=== PATIENT | male | born 1970 | race Caucasian/White ===

== ENCOUNTER 2017-07-14 16:48 | Inpatient (IN) ==
[2017-07-14] MEDS ORDERED: IOPAMIDOL 100 ML BOTTLE IV ONE (16:49)
--- NOTE | 2017-07-14 17:21 | Emergency Department Note ---
Abdominal Pain HPI - General Chief Complaint: Abdominal Pain Stated Complaint: Abdominal pain Time Seen by Provider: 07/14/17 17:04 Source: patient Mode of arrival: EMS Limitations: no limitations - History of Present Illness HPI Narrative: 46-year-old male presents by EMS from [place]. He was seen for 6 day history of diarrhea/constipation, abdominal pain, and nausea/vomiting. He had labs which were unremarkable besides a very elevated amylase and a very elevated lipase. He had back surgery on 17 May and got a postoperative infection and started taking Keflex and Bactrim. He had issues with constipation and stopped taking his pain medication cold turkey. In the last 6 days he has not had any pain medication but has had vomiting daily. He is also had small stools that are not normal. He states it is very hard for him to bear down and pass a stool. No fevers or chills. He was trying to ride it out at home but then decided to go to the hospital. Denies history of drinking. He did take hydrocodone for back pain before his surgery. He had an x-ray done which showed air-fluid levels and suspicious for bowel obstruction. He was given nausea medication and fluids at the hospital and has not vomited since. He does not want any pain medication. He has had issues with constipation in the past but never anything this bad - Related Data Home Medications Medication Instructions Recorded Confirmed Baclofen [Lioresal] 10 mg PO TID 07/14/17 07/14/17 Cephalexin [Keflex] 500 mg PO TID 07/14/17 07/14/17 Gabapentin [Neurontin] 300 mg PO Q8 07/14/17 07/14/17 Sennosides [Senna Laxative] 8.6 mg PO BID 07/14/17 07/14/17 Sulfamethoxazole/Trimethoprim 1 each PO BID 07/14/17 07/14/17 [Sulfamethoxazole-Tmp Ss Tablet] traZODone HCL [Desyrel] 150 mg PO HS 07/14/17 07/14/17 Allergies Allergy/AdvReac Type Severity Reaction Status Date / Time No Known Drug Allergies Allergy Verified 07/14/17 16:52 Review of Systems All systems ED: reviewed and negative except as stated. Abdominal Pain PMH - Past Medical History Medical history: Reports: other (back pain). Denies: hypertension Surgical history ED: Reports: other (back surgery) Psychiatric history: Reports: no psych history Family history: Reports: no significant family history - Social History Smoking status: Former smoker Physical Exam Limitations: no limitations General appearance: alert, in no apparent distress Head: atraumatic Eye: Present: normal appearance. Absent: conjunctival injection Neck: Present: normal inspection, full ROM Chest: Present: normal inspection, symmetric chest wall rise Respiratory: Present: normal lung sounds bilaterally Cardiovascular: Present: regular rate, normal heart sounds Abdominal: Present: soft, tenderness, guarding, hyperactive bowel sounds. Absent: distention, rebound, rigidity Abdominal tenderness: Present: epigastrium, diffuse, moderate Extremities: Present: normal inspection, full ROM Neurological: Present: alert, oriented X3 Psychiatric: Present: normal affect, normal mood Skin: Present: warm, dry, intact Course Course Narrative: He will be admitted and managed Vital Signs Temperature 97.7 F 07/14/17 16:49 Pulse Rate 61 07/14/17 16:49 Respiratory Rate 18 07/14/17 16:49 Blood Pressure 112/65 07/14/17 16:49 Pulse Oximetry (%) 97 07/14/17 16:49 Temperature 97.7 F 07/14/17 16:49 Pulse Rate 64 07/14/17 20:12 Respiratory Rate 18 07/14/17 16:49 Blood Pressure 131/80 07/14/17 20:12 Pulse Oximetry (%) 100 07/14/17 20:12 Disposition Pt seen by [facility]/PA only: Yes Clinical Impression: Pancreatitis Disposition: Xfer As Inpt ([facility]) Condition: Fair Referrals: Mary Hunt DO [Primary Care Provider] -
[2017-07-14] MEDS ORDERED: ACETAMINOPHEN 325 MG TABLET PO PRN (21:40)
[2017-07-14] MEDS ORDERED: traZODone HCL 150 MG TABLET PO SCH (21:40)
[2017-07-14] MEDS ORDERED: PROCHLORPERAZINE 10 MG/2 ML VIAL IV PRN (21:40)
[2017-07-14] MEDS: 0.9 % SODIUM CHLORIDE 1,000 ML IV SCH (22:12)
[2017-07-14] MEDS: GABAPENTIN 300 MG CAPSULE PO SCH (22:30)
[2017-07-14] MEDS: SENNOSIDES 1 TABLET PO SCH (22:30)
[2017-07-14] MEDS: SULFAMETHOXAZOLE/TRIMETHOPRIM 1 TABLET PO SCH (22:30)
[2017-07-14] MEDS: ONDANSETRON 4 MG/2 ML VIAL IV PRN (22:31)
[2017-07-14] MEDS: FAMOTIDINE/PF 20 MG/2 ML VIAL IV SCH (22:31)
[2017-07-14] MEDS: 0.9 % SODIUM CHLORIDE 10 ML SYRINGE IV SCH (22:31)
[2017-07-14] MEDS: KETOROLAC 30 MG/ML VIAL IV PRN (22:31)
--- NOTE | 2017-07-14 22:58 | Internal Med History&Physical ---
Medical - H&P: HPI Patient information: Note initiated : 07/14/17 at 10:53 pm Service Date, if different from initiated Date: [] Patient: Kaushik Cochran 46 y/o M admitted on 07/14/17 for Abdominal pain. Chief Complaint: abdominal pain History of present illness: Patient's a 46-year-old male who lives near [place]. His recent history is notable for back surgery with lower lumbar fusion. He been treated for postoperative wound infection. About 10 days ago, he followed up with his surgeon in [place]. He is finishing her first course of oral antibiotics ( Bactrim and Keflex) and was prescribed a second round of antibiotics. Patient states that as he was starting the second round of 10 days of oral antibiotics he started developing abdominal pain, nausea and vomiting. The pain would wake him from sleep and psychological assistant. The pain was associated with nausea. Sometimes he be able to keep down oral intake, other times he would have emesis. He has not had hematemesis. During this time, apparently his use of opioid pain medications decreased. He feels he might be going through withdrawal, and eventually stopped all opioids. His pain is rather diffuse. Associated with nausea and vomiting. Also he has intermittent loose and solid stools. It hurts to bear down to try to pass the stool. He's felt sweaty and chilled during this time. Oral intake may make the abdominal pain worse. Due to ongoing pain, he presents to the hospital [place]. Radiographs there shows air-fluid levels and concern for possible bowel obstruction. He is transferred to this facility for further evaluation. CT in the emergency department did not reveal bowel obstruction, did show evidence of scattered air- fluid levels which are nonspecific. The gallbladder is contracted, the biliary ducts were normal in size. There is not significant inflammatory change around the pancreas. Labs obtained in [place] were notable for an elevated lipase at 1489. Amylase is also elevated at 236. Patient is being admitted for further treatment as of abdominal pain, presumptive acute pancreatitis. Patient denies fevers, he has been feeling chilled and sweaty at times. No headache, no vision changes, and no sore throat, no shortness of breath, no chest pain, no cough or sputum production. No history of lung disease, no history of thyroid disease, no history of pancreatic disease or diabetes. No prior history of GI illnesses. No history of renal disease. No history of cardiac disease, congestive heart failure or stroke. All systems: reviewed and no additional remarkable complaints except as stated Medical - H&P: PMH Medical history: Degenerative joint disease Surgical history: Status post shoulder surgery Status post lumbar fusion Pertinent family history: No history of gastrointestinal illness. Sister with renal issues, his mother has had stenting of the heart. Social history: The patient has not drank in 7 years. He stopped smoking many months ago preoperatively. Medical - H&P: Meds Home Medications Medication Instructions Recorded Confirmed Type Baclofen [Lioresal] 10 mg PO TID 07/14/17 07/14/17 History Cephalexin [Keflex] 500 mg PO TID 07/14/17 07/14/17 History Gabapentin [Neurontin] 300 mg PO Q8 07/14/17 07/14/17 History Sennosides [Senna Laxative] 8.6 mg PO BID 07/14/17 07/14/17 History Sulfamethoxazole/Trimethoprim 1 tab PO BID 07/14/17 07/14/17 History [Bactrim Ds] traZODone HCL [Desyrel] 150 mg PO HS 07/14/17 07/14/17 History Allergies Allergy/AdvReac Type Severity Reaction Status Date / Time No Known Drug Allergies Allergy Verified 07/14/17 16:52 Medical - H&P: Exam - Constitutional Vitals: Temp Pulse Resp BP Pulse Ox 98.3 F 78 18 115/66 97 07/14/17 21:51 07/14/17 21:51 07/14/17 21:51 07/14/17 21:51 07/14/17 21:51 Exam: General: Alert, in no acute distress HEENT: Normocephalic. Pupils are equally round and reactive to light. Sclera are anicteric. No conjunctival injection. Oropharynx is with moist mucous membranes, no lip or gum lesions. Tongue is midline. Neck: Supple, no meningismus. No thyromegaly. Chest: Clear to auscultation bilaterally with no rales or wheezes. No accessory muscle use. Cardiovascular: Regular rate and rhythm without murmur gallop or rub. Carotid pulses are 2+ without bruit. There is no lower extremity edema. JVP is normal. Abdomen: Soft, diffuse moderate tenderness to palpation without guarding or rebound. Very active bowel sounds present. No rushes or tinkles. No hepatosplenomegaly. Lymphatic: No cervical or supraclavicular lymphadenopathy. Skin: Warm, dry. No rash. Skin turgor is normal Musculoskeletal: No joint erythema or tenderness. Normal range of motion in the upper and lower extremities. Strength 5/5 in upper and lower extremities. Digits without cyanosis or clubbing. Surgical incision without surrounding erythema or discharge on the lower back. Neuro: Alert, oriented X3. Cranial nerves II through XII grossly intact. Sensation intact to light touch. DTR 2+ in the upper and lower extremity. Psychiatric: Affect and orientation are normal. Good insight. Medical - H&P: Reslt - Labs Labs: Labs obtained in [place] count 9.8, hemoglobin 14.4, platelet count 263,000 with 73% neutrophils and differential. Sodium 141, potassium 4.3, chloride 100, bicarbonate 29, BUN 12, creatinine 1.08. Calcium 10.8, total protein 8.7, albumin 4.6, total bilirubin 0.46, alkaline phosphatase 87, ALT 20, AST 11. Lipase 1489, amylase 236. - Imaging and Cardiology CT scan - abdomen Status: image reviewed by me Additional comments: scattered air-fluid levels, normal bile ducts, no significant pancreatic lesions. No evidence of small bowel obstruction. Medical - H&P: A/P (1) Pancreatitis Current visit: Yes Status: Acute - Narrative A/P Narrative: 46-year-old male presents with ongoing abdominal pain, nausea and vomiting with evidence of elevated lipase. Nausea and vomiting. Presumptive acute pancreatitis. May not explain all of his abdominal pain. There may also be a component of opioid withdrawal. Unclear if that could've contributed to an elevated lipase, bowel obstructions can, but unclear about bowel hyperactivity in withdrawal. No evidence of bowel obstruction on CT scan. Etiology of the pancreatitis would be unclear, he has been on Bactrim and Keflex, those are not generally associated with pancreatitis however. No other new medications. He has not drink alcohol. His biliary system looks normal on CT scan. No history of hyperlipidemia, but that remains a possibility. Without significant leukocytosis and with him passing formed stool at times, feel C. difficile is less likely. Plan: Inpatient admission Clear liquid diet, IV hydration Anti-emetics Pain control with Toradol, will attempt to avoid opioids, as he does not wish to resume those compounds. Check for hypertriglyceridemia. If stools become more watery and persisting, consider checking C. difficile. Surgical site infection of the lumbar spine. Resonant on admission. Plan: Continue with oral antibiotics. CODE STATUS full code. Prophylaxis: Lovenox.
[2017-07-15] MEDS: traZODone HCL 150 MG TABLET PO PRN ×2 (00:39→22:34)
[2017-07-15] MEDS: GABAPENTIN 300 MG CAPSULE PO SCH ×3 (06:41→22:33)
[2017-07-15] MEDS: 0.9 % SODIUM CHLORIDE 10 ML SYRINGE IV SCH ×3 (06:42→20:59)
[2017-07-15 06:57] LABS: Mean Cell Volume 91.1 fL (80.0-100.0); Mean Corpuscular HGB Conc 33.5 g/dL (31.0-36.0); Mean Corpuscular Hemoglobin 30.6 pg (26.0-34.0); Platelet Count 210 K/mcL (140-440); RBC 3.81 M/mcL (4.50-5.90); Red Cell Distribution Width 15.1 % (11.5-14.5)
[2017-07-15] MEDS: KETOROLAC 30 MG/ML VIAL IV PRN ×3 (07:07→20:58)
[2017-07-15] MEDS: ONDANSETRON 4 MG/2 ML VIAL IV PRN (07:07)
[2017-07-15 07:10] LABS: ALT/SGPT 8 U/l (0-40); Albumin 3.7 gm/dL (3.2-5.2); Albumin/Globulin Ratio 1.6 (1.0-2.3); Alkaline Phosphatase 56 U/L (39-117); Bilirubin,Direct < 0.2 mg/dL (0.0-0.3); Blood Urea Nitrogen 9 mg/dl (6-20); Gamma Glutamyl Transpeptidase 19 U/L (8-61); Uric Acid 3.6 mg/dL (2.5-8.0)
[2017-07-15 07:56] LABS: Lymphocytes % 20 % (15-49); Monocytes % (Manual) 6 % (1-12); Platelet Estimate NORMAL (NORMAL); RBC Morphology NORMAL (NORMAL); Segmented Neutrophils % 74 % (38-78)
[2017-07-15] MEDS: 0.9 % SODIUM CHLORIDE 1,000 ML IV SCH ×2 (08:32→18:07)
--- NOTE | 2017-07-15 08:41 | Cat Scan Report ---
CLINICAL INFORMATION: Reason for Exam:bowel obstruction, pancreatitis COMPARISON: None. TECHNIQUE: Following injection of intravenous contrast the patient was scanned during the portal venous phase from the diaphragm through the symphysis pubis. Sagittal and coronal reformats were created.. FINDINGS: The lung bases are clear. The liver and spleen are normal in size and homogeneous. The gallbladder is incompletely distended but the maza are not thickened or inflamed and there are no gallstones. The bile ducts are nondilated. Along the inferior border of the head of the pancreas there is ill-defined 1 x 1.1 cm low-attenuation lesion. The remainder the pancreas is normal. The pancreatic duct is nondilated and there is no pseudocyst. The adrenals are normal in size and symmetric. There are two nonobstructing calyceal stones in the right kidney which measure up to 1.5 mm in size. There is no stone in the left kidney. No hydronephrosis mass or cyst are present in either kidney. There is moderate amount of fluid in nondilated large and small intestine. There are a few air-fluid levels in the colon. No ascites, abscess or adenopathy are present within the abdomen or pelvis. Urinary bladder is largely decompressed but grossly normal. No abnormalities detected in or adjacent to the prostate or seminal vesicles. There is plaque formation along the wall of a normal caliber distal abdominal aorta and the common iliac arteries. IMPRESSION: 1 cm low-density lesion inferiorly in the head of the pancreas. This is probably focal pancreatitis and less likely neoplasm or complex cyst. Nonobstructing kidney stones in the right side Nonspecific bowel pattern without evidence of bowel obstruction Interpreted and Authenticated by: Yunior Emmanuel 07/15/17
[2017-07-15] MEDS: CEPHALEXIN 250 MG CAPSULE PO SCH ×3 (09:16→20:50)
[2017-07-15] MEDS: SULFAMETHOXAZOLE/TRIMETHOPRIM 1 TABLET PO SCH ×2 (09:16→20:50)
[2017-07-15] MEDS: FAMOTIDINE/PF 20 MG/2 ML VIAL IV SCH ×2 (09:17→20:50)
[2017-07-15] MEDS: SENNOSIDES 1 TABLET PO SCH ×4 (09:17→20:51)
--- NOTE | 2017-07-15 17:29 | Internal Med Progress Note ---
Medical - PN: Subj Patient information: Note initiated : 07/15/17 at 5:26 pm Service Date, if different from initiated Date: [] Patient: Kaushik Cochran 46 y/o M admitted on 07/14/17 for Abdominal pain. Chief Complaint: f/u pancreatitis Interval history: 07/14 46-year-old male presented with abdominal pain, persistent nausea and vomiting. Had elevated lipase. However also had been cutting back and stopping opioid pain medications he had from previous back surgery. 2/3 Improved today, tolerating clear liquid diet in general. He has had no emesis. Still with intermittent abdominal pain, though some of that appears to be musculoskeletal in nature along the rib cage as a result of retching for the last few weeks. In pretty good spirits. Like to try full liquids. Lipase down to the 100 range. Did discuss the results of abdominal CT with radiologist, formal read shows cystic structure in the pancreas that could be consistent with pancreatitis, follow-up will be needed - Constitutional Vitals: Vital Signs Temp Pulse Resp BP Pulse Ox 98.4 F 58 L 18 131/68 97 07/15/17 15:31 07/15/17 04:00 07/15/17 15:31 07/15/17 15:31 07/15/17 15:31 Period Temp Pulse Resp BP Sys/[place]ston Pulse Ox Last 24 Hr 98.1 F-99.7 F 52-78 16-18 99-158/53-141 96-100 Intake and Output 07/15/17 07/15/17 07/15/17 05:59 13:59 21:59 Intake Total 900 / 900 2520 / 2520 320 / 320 Output Total 275 / 275 550 / 550 500 / 500 Balance 625 / 625 1969180 / -180 Weight 129 lb 11.2 oz 129 lb 11.2 oz Patient Weight 07/16/17 05:59 Weight 129 lb 11.2 oz Intake & Output: Intake & Output 07/15/17 07/15/17 07/15/17 05:59 13:59 21:59 Intake Total 900 / 900 2520 / 2520 320 / 320 Output Total 275 / 275 550 / 550 500 / 500 Balance 625 / 625 1969180 / -180 Weight 129 lb 11.2 oz 129 lb 11.2 oz Intake: IV 1000 / 1000 Sodium Chloride 0.9% 1,000 ml @ 1000 / 1000 100 mls/hr IV .Q10H [facility] Rx#: [id number] Oral 900 / 900 1520 / 1520 320 / 320 Output: Void Amount 275 / 275 550 / 550 500 / 500 Other: Meal Dinner Percent of Meal Consumed 100% # Voids 1 # Bowel Movements 1 1 Exam: General: Awake, alert, no distress Chest: Clear, unlabored Cardiovascular: Regular, no edema Abdomen: Soft, mild epigastric tenderness to palpation, no guarding or rebound. There is tenderness along the costal margin as well. Neuro: Alert, oriented, nonfocal Skin: Surgical wound on back without erythema or discharge. Medical - PN: Obj Da - Labs CBC & Chem 7: 07/15/17 05:10 07/15/17 05:10 Labs: Abnormal Lab Results 07/15/17 07/15/17 05:10 05:10 RBC 3.81 L Hgb 11.6 L Hct 34.7 L RDW 15.1 H Lipase 160 H Meds: Medications Acetaminophen (Tylenol) 650 mg PO Q6HP PRN PRN Reason: PAIN/FEVER > 101 Cephalexin HCl (Keflex) 500 mg PO TID [facility] Last Admin: 07/15/17 14:57 Dose: 500 mg Famotidine (Pepcid) 20 mg IV Q12 [facility] Last Admin: 07/15/17 09:17 Dose: 20 mg Gabapentin (Neurontin) 300 mg PO Q8 [facility] Last Admin: 07/15/17 13:21 Dose: 300 mg Sodium Chloride (Sodium Chloride 0.9%) 1,000 mls @ 100 mls/hr IV .Q10H [facility] Last Admin: 07/15/17 08:32 Dose: 100 mls/hr Ketorolac Tromethamine (Toradol) 30 mg IV Q6HP PRN PRN Reason: Pain Stop: 07/16/17 20:15 Last Admin: 07/15/17 13:21 Dose: 30 mg Ondansetron HCl (Zofran) 4 mg IV Q6HP PRN PRN Reason: Nausea And Vomiting Last Admin: 07/15/17 07:07 Dose: 4 mg Prochlorperazine Edisylate (Compazine) 5 mg IV Q4HP PRN PRN Reason: Nausea And Vomiting Senna (Senokot) 1 tab PO BID [facility] Last Admin: 07/15/17 10:01 Dose: 1 tab Sodium Chloride (Saline Flush) 10 ml IV Q8 [facility] Last Admin: 07/15/17 13:14 Dose: Not Given Trazodone HCl (Desyrel) 450 mg PO HSP PRN PRN Reason: Insomnia Last Admin: 07/15/17 00:39 Dose: 300 mg Trimethoprim/Sulfamethoxazole (Bactrim Ds) 1 tab PO BID [facility] Last Admin: 07/15/17 09:16 Dose: 1 tab - Imaging and cardiology CT scan - abdomen Status: image reviewed by me Additional comments: IMPRESSION: -1 cm low-density lesion inferiorly in the head of the pancreas. This is probably focal pancreatitis and less likely neoplasm or complex cyst. -Nonobstructing kidney stones in the right side -Nonspecific bowel pattern without evidence of bowel obstruction Medical - PN: A/P (1) Pancreatitis Status: Acute Current Visit: Yes - Narrative A/P Narrative: 46-year-old male presents with ongoing abdominal pain, nausea and vomiting with evidence of elevated lipase. Nausea and vomiting. Improvement in symptoms along with improvement of lipase overnight. Tolerating diet. Long with findings in the pancreas that could be consistent with focal area pancreatitis, suspect this may be his presentation. Certainly may have also had some component of opioid withdrawal, though improved today. Plan: Advanced to full liquid diet, continue hydration, antiemetics and pain control as needed. Continue with Toradol, avoid opioids. Consider Celebrex at discharge for musculoskeletal pain. Surgical site infection of the lumbar spine. Resonant on admission. Plan: Continue with oral antibiotics. Medical - PN: Qual - Stroke Symptom Onset Unknown: No - VTE Deep Vein Thrombosis/Pulmonary Embolism Present on Admission: No
[2017-07-16] MEDS: KETOROLAC 30 MG/ML VIAL IV PRN (03:40)
[2017-07-16] MEDS ORDERED: MAG HYDROX/AL HYDROX/SIMETH 30 ML ORAL.SUSP PO PRN (04:23)
[2017-07-16] MEDS ORDERED: CALCIUM CARBONATE 500 MG TAB.CHEW CHEWED PRN (04:24)
[2017-07-16] MEDS: 0.9 % SODIUM CHLORIDE 1,000 ML IV SCH ×2 (04:36→13:49)
[2017-07-16] MEDS ORDERED: CALCIUM CARBONATE 500 MG TAB.CHEW ONE (04:42)
[2017-07-16] MEDS ORDERED: MAGNESIUM HYDROXIDE 30 ML ORAL.SUSP ONE (04:43)
[2017-07-16] MEDS: 0.9 % SODIUM CHLORIDE 10 ML SYRINGE IV SCH ×2 (05:16→12:56)
[2017-07-16] MEDS: FAMOTIDINE/PF 20 MG/2 ML VIAL IV SCH ×2 (05:59→08:13)
[2017-07-16] MEDS: GABAPENTIN 300 MG CAPSULE PO SCH ×2 (05:59→13:52)
[2017-07-16 07:35] LABS: ALT/SGPT 8 U/l (0-40); Albumin 3.7 gm/dL (3.2-5.2); Albumin/Globulin Ratio 1.9 (1.0-2.3); Alkaline Phosphatase 55 U/L (39-117); Bilirubin,Direct < 0.2 mg/dL (0.0-0.3); Blood Urea Nitrogen 6 mg/dl (6-20); Gamma Glutamyl Transpeptidase 16 U/L (8-61); Uric Acid 2.6 mg/dL (2.5-8.0)
[2017-07-16] MEDS: CEPHALEXIN 250 MG CAPSULE PO SCH ×2 (08:18→14:17)
[2017-07-16] MEDS: SULFAMETHOXAZOLE/TRIMETHOPRIM 1 TABLET PO SCH (08:19)
[2017-07-16] MEDS: SENNOSIDES 1 TABLET PO SCH (08:19)
--- NOTE | 2017-07-16 14:08 | Discharge Summary ---
Medical - DS: Prov Patient information: Note initiated : 07/16/17 at 1:57 pm Service Date, if different from initiated Date: [] Patient: Kaushik Cochran 46 y/o M admitted on 07/14/17 for Abdominal pain/ Pancreatitis. Date of admission: 07/14/17 21:39 Discharge date: 07/16/17 Primary care physician: Mary Hunt Admitting clinician: Karen Livingston Consults: 07/14/17 18:43 Consult to Physician [CONS] Stat Comment: Consulting Provider: Karen Livingston Reason For Exam: Physician to Consult Discharging clinician: Karen Livingston Medical - DS: Meds - Discharge Medications Prescriptions: Hyoscyamine Sulfate 0.125 mg PO Q4HP PRN #15 tab.rapdis PRN Reason: Abdominal Distention Omeprazole [Prilosec] 20 mg PO ACB #30 cap Sulindac 150 mg PO BIDP PRN #14 tab PRN Reason: Pain Active and Home Medications: Home Medications Baclofen [Lioresal] 10 mg PO TID 07/14/17 [History Confirmed 07/14/17 Last Taken 07/12/17 23:30] Cephalexin [Keflex] 500 mg PO TID 07/14/17 [History Confirmed 07/14/17 Last Taken 07/12/17 23:00] Gabapentin [Neurontin] 300 mg PO Q8 07/14/17 [History Confirmed 07/14/17 Last Taken 07/12/17 23:00] Sennosides [Senna Laxative] 8.6 mg PO BID 07/14/17 [History Confirmed 07/14/17 Last Taken 07/11/17 21:00] Sulfamethoxazole/Trimethoprim [Bactrim Ds] 1 tab PO BID 07/14/17 [History Confirmed 07/14/17 Last Taken 07/12/17 20:00] traZODone HCL [Desyrel] 450 mg PO HS 07/14/17 [History Confirmed 07/15/17 Last Taken 07/13/17 22:00] Docusate Sodium 1 tab PO DAILY 07/15/17 [History Confirmed 07/15/17 Last Taken Unknown] morphine [Ms Contin] 15 mg PO BID 07/15/17 [History Confirmed 07/15/17 Last Taken 07/10/17] oxyCODONE HCL [Oxycodone HCl] 1 - 2 tab PO Q4-6HP PRN 07/15/17 [History Confirmed 07/15/17 Last Taken 07/10/17] Medical - DS: Hosp Hospital course: 07/14 46-year-old male presented with abdominal pain, persistent nausea and vomiting. Had elevated lipase. However also had been cutting back and stopping opioid pain medications he had from previous back surgery. 2/3 Improved today, tolerating clear liquid diet in general. He has had no emesis. Still with intermittent abdominal pain, though some of that appears to be musculoskeletal in nature along the rib cage as a result of retching for the last few weeks. In pretty good spirits. Like to try full liquids. Lipase down to the 100 range. Did discuss the results of abdominal CT with radiologist, formal read shows cystic structure in the pancreas that could be consistent with pancreatitis, follow-up will be needed 07/16 He had a bout of abdominal pain about 3 AM, with some distention. Was having small hard bowel movement yesterday, now looser bowel movements today. Because of loose stools, C. diff was sent overnight, which was negative. Diet advanced and tolerating that well without nausea or abdominal pain today. Repeat radiograph without significant air-fluid levels or abdominal distention. He is stable for discharge, we'll provide a prescription for hyoscyamine for abdominal distention and spasm, sulindac to replace narcotics for back pain as needed as well as omeprazole for GI protection while on nonsteroidal. In summary: Patient was admitted in transfer from [facility] with abdominal pain and air-fluid levels at the outside facility. No evidence of obstruction on CT scan at this facility. He had ongoing nausea and vomiting and abdominal pain for a few weeks. Because of his GI symptoms he had been weaning off opioid pain medications after his back surgery. He was found to have elevated lipase, had changes on CT consistent with focal area of acute pancreatitis. He rapidly improved during his hospitalization. He had intermittent spasms of abdominal pain, likely related to the remnant effects of narcotic use, that was improving. I provided prescriptions for spasm. I'll also provide a prescription for a nonsteroidal analgesic as he wishes to stop using opioids for his postsurgical back pain. Issues of follow-up: Repeat CT scan in 6-8 weeks to monitor 1 cm x 1.1 cm cystic structure in the head of the pancreas, likely related to acute pancreatitis, to assure resolution. Discharge diagnosis: Acute pancreatitis - Time Spent with Patient Total time spent providing and/or coordinating discharge services: Greater than 30 minutes Medical - DS: Exam - Constitutional Vitals: Vital Signs Temp Pulse Resp BP Pulse Ox 07/16/17 11:10 98.6 F 18 140/63 97 07/16/17 06:33 98.4 F 20 122/68 95 07/16/17 04:00 98.4 F 51 L 18 141/72 98 07/15/17 23:24 98.6 F 54 L 18 117/68 97 07/15/17 20:00 99 F 55 L 18 122/76 99 07/15/17 15:31 98.4 F 18 131/68 97 Intake and Output 07/15/17 07/16/17 07/16/17 21:59 05:59 13:59 Intake Total 1278 / 1278 1200 / 1200 Output Total 1225 / 1225 1275 / 1275 350 / 350 Balance 53 / 53 -75 / -75 -350 / -350 Intake: IV 958 / 958 1000 / 1000 Sodium Chloride 0.9% 1,000 ml @ 958 / 958 1000 / 1000 100 mls/hr IV .Q10H [facility] Rx#: [id number] Oral 320 / 320 200 / 200 Output: Void Amount 1225 / 1225 1275 / 1275 350 / 350 Other: Meal Dinner Percent of Meal Consumed 100% # Voids 2 # Bowel Movements 1 1 Weight 133 lb 1.6 oz Additional comments: General: Sitting up in bed, talkative, in good spirits Chest: Clear, unlabored Cardio vascular: Regular, no edema Abdomen: Soft, no tenderness to palpation, normal bowel sounds present. Neuro: Alert, oriented, nonfocal. Medical - DS: Data Labs on day of discharge: Labs from last 24 hours 07/16/17 07/16/17 04:50 04:50 Sodium 138 Potassium 4.1 Chloride 107 Carbon Dioxide 17 L Anion Gap 14.0 BUN 6 Creatinine 0.8 GFR Calculation 106 Glucose 94 Uric Acid 2.6 Calcium 8.6 Phosphorus 2.6 L Magnesium 1.7 Total Bilirubin 0.3 Direct Bilirubin < 0.2 GGT 16 AST 16 ALT 8 Alkaline Phosphatase 55 Lactate Dehydrogenase 205 Total Protein 5.7 L Albumin 3.7 Globulin 2.0 L Albumin/Globulin Ratio 1.9 Triglycerides 62 Lipase 93 H - Imaging and Cardiology CT scan - abdomen Additional comments: FINDINGS: The lung bases are clear. The liver and spleen are normal in size and homogeneous. The gallbladder is incompletely distended but the maza are not thickened or inflamed and there are no gallstones. The bile ducts are nondilated. Along the inferior border of the head of the pancreas there is ill-defined 1 x 1.1 cm low-attenuation lesion. The remainder the pancreas is normal. The pancreatic duct is nondilated and there is no pseudocyst. The adrenals are normal in size and symmetric. There are two nonobstructing calyceal stones in the right kidney which measure up to 1.5 mm in size. There is no stone in the left kidney. No hydronephrosis mass or cyst are present in either kidney. There is moderate amount of fluid in nondilated large and small intestine. There are a few air-fluid levels in the colon. No ascites, abscess or adenopathy are present within the abdomen or pelvis. Urinary bladder is largely decompressed but grossly normal. No abnormalities detected in or adjacent to the prostate or seminal vesicles. There is plaque formation along the wall of a normal caliber distal abdominal aorta and the common iliac arteries. IMPRESSION: -1 cm low-density lesion inferiorly in the head of the pancreas. This is probably focal pancreatitis and less likely neoplasm or complex cyst. -Nonobstructing kidney stones in the right side -Nonspecific bowel pattern without evidence of bowel obstruction Medical - DS: A/P - Patient/Caregiver Discharge Instructions Activity: increase activity as tolerated Diet: Regular Diet Additional Instructions: Use the sulindac medication as needed up to 2 times a day for back pain. Take omeprazole (Prilosec) daily when using the sulindac to protect your stomach. Try the hyoscyamine for abdominal bloating or spasm and pain. - Problem Maintenance (1) Pancreatitis Status: Resolved Qualifiers: Chronicity: acute Pancreatitis type: unspecified pancreatitis type - Follow up Plan Follow up with: Mary Hunt DO [Primary Care Provider] - (1-2 weeks) Disposition: Home, Self-Care Prognosis: Good Rehab Potential: Good Overall status at discharge: patient is progressing back to baseline Medical - DS: Qual - VTE Deep Vein Thrombosis/Pulmonary Embolism Present on Admission: No
--- NOTE | 2017-07-16 15:03 | XRay Report ---
HISTORY: Reason for Exam:f/u abdominal pain FINDINGS: There are a few air-fluid levels in nondilated small and large intestine as well as the stomach. No free intra-abdominal air is present. The pancreas cannot be evaluated on this exam. The two small right-sided kidney stones seen on the recent CT scan are obscured by bowel gas on today's exam. The lung bases are clear. IMPRESSION: Normal exam Interpreted and Authenticated by: Yunior Emmanuel 07/16/17
== END 2017-07-16 15:20 | disposition home or self-care (01) | DRG 440 ==
LOC: ED 16:48 → MEDSUR 21:39
PROVIDERS: ADMIT Internal Medicine; ATTEND Internal Medicine